=== PATIENT | female | born 1980 | race Caucasian/White ===

== ENCOUNTER 2020-06-30 12:16 | Outpatient (CLI) | payer OTHER, SELFPAY ==
[2020-06-30 12:43] LABS: Hemoglobin 14.2 g/dL (12.0-15.0); Mean Corpuscular HGB Conc 33.8 g/dl (32-36); Mean Corpuscular Volume 91.7 fl (80-100); Mean Platelet Volume 8.6 fl (7.4-10.4); Platelet Count Result 346 k/mm3 (150-375); Red Blood Count 4.58 M/mm3 (4.2-5.4); Red Cell Distribution Width 12.5 % (11.5-14.5); White Blood Count 5.9 K/mm3 (4.5-10.0)
[2020-06-30 14:32] LABS: Free T4 Free Thyroxine 0.92 ng/mL (0.78-2.19); Vitamin D 25 Hydroxy 39.7 ng/mL
== END 2020-06-30 12:17 | disposition home or self-care (01) ==
PROVIDERS: Visit Provider Nurse Practitioner
DX: E55.9 Vitamin D deficiency, unspecified (principal); R53.83 Other fatigue
CPT/HCPCS: 36415; 82306; 82607; 84439; 84443; 85027

== ENCOUNTER 2020-12-11 14:55 | Outpatient (CLI) | payer OTHER, SELFPAY ==
--- NOTE | ~2020-12-11 | XR_ITS ---
EXAMINATION:XR cervical spine 4-5V DATE: 12/11/2020 15:15 INDICATION: Neck pain TECHNIQUE: AP, lateral, lateral swimmers and odontoid views of the cervical spine are provided. COMPARISON: 04/08/2017 FINDINGS: Alignment is normal. The odontoid is intact. No fracture is identified. The vertebral body heights are maintained. There is mild chronic loss of intervertebral disc space height at C5-6 and C6 -7. Unchanged mild bilateral uncovertebral joint osteoarthritis is noted at C5-6. IMPRESSION: 1. Mild cervical spondylosis without acute findings or significant interval change. Reviewed, dictated and finalized at location A. IMPRESSION: 1. Mild cervical spondylosis without acute findings or significant interval ailyn fartune.
== END 2020-12-11 14:56 | disposition home or self-care (01) ==
LOC: ANHIMG 14:58
PROVIDERS: PCP Physician Assistant; Visit Provider Physician Assistant
DX: M47.22 Other spondylosis with radiculopathy, cervical region (principal)
CPT/HCPCS: 72050

== ENCOUNTER 2021-01-11 09:18 | Outpatient (CLI) | payer OTHER, SELFPAY ==
[2021-01-11 09:44] LABS: Hematocrit 41.8 % (37.0-47.0); Hemoglobin 13.8 g/dL (12.0-15.0); Mean Corpuscular Hemoglobin 30.1 pg (26-34); Mean Corpuscular Volume 91.1 fl (80-100); Mean Platelet Volume 8.5 fl (7.4-10.4); Platelet Count Result 298 k/mm3 (150-375); Red Blood Count 4.59 M/mm3 (4.2-5.4); Red Cell Distribution Width 13.3 % (11.5-14.5); White Blood Count 5.1 K/mm3 (4.5-10.0)
[2021-01-11 10:32] LABS: Erythrocyte Sedimentation Rate 6 mm/hr (0-20)
[2021-01-11 10:33] LABS: Alanine Aminotransferase 18 U/L (4-35); Albumin Level 4.3 g/dL (3.5-5.1); Alkaline Phosphatase 54 U/L (38-126); Anion Gap 9 mmol/L (8-16); Aspartate Amino Transferase 28 U/L (14-36); Bilirubin,Total 0.4 mg/dL (0.2-1.3); Blood Urea Nitrogen 9 mg/dL (7-17); Calcium 9.4 mg/dL (8.4-10.2); Carbon Dioxide 27 mmol/L (22-30); Chloride 102 mmol/L (98-107); Cholesterol 173 mg/dL (0-200); Estimated Glomerular Filt Rate > 60; Glucose 85 mg/dL (65-110); HDL Direct 70 mg/dL; Potassium 3.9 mmol/L (3.4-5.0); Sodium 138 mmol/L (137-145); Triglycerides 56 mg/dL (<150)
[2021-01-11 10:44] LABS: LDL Cholesterol Direct 61 mg/dL
[2021-01-11 12:05] LABS: Folic Acid > 20.0 ng/mL (2.76->20)
== END 2021-01-11 09:19 | disposition home or self-care (01) ==
PROVIDERS: PCP Physician Assistant; Visit Provider Physician Assistant
DX: Z00.00 Encounter for general adult medical examination without abnormal findings (principal); M54.2 Cervicalgia
CPT/HCPCS: 36415; 80053; 80061; 82607; 82746; 84443; 85027; 85652

== ENCOUNTER 2021-10-05 10:37 | Outpatient (CLI) | payer OTHER, SELFPAY ==
[2021-10-05 11:37] LABS: Vitamin D 25 Hydroxy 40.9 ng/mL
== END 2021-10-05 10:38 | disposition home or self-care (01) ==
LOC: ANHLAB 10:39
PROVIDERS: PCP Physician Assistant; Visit Provider Nurse Practitioner
DX: E55.9 Vitamin D deficiency, unspecified (principal)
CPT/HCPCS: 36415; 82306

== ENCOUNTER 2021-10-21 15:11 | Outpatient (CLI) | payer OTHER, SELFPAY ==
--- NOTE | ~2021-10-21 | MR_ITS ---
EXAMINATION: MR cervical spine wo con DATE: 10/21/2021 16:04 INDICATION: Cervical radiculopathy. TECHNIQUE: Magnetic resonance imaging (MRI) of the cervical spine was performed without intravenous c ontrast. Sequences included sagittal T2-weighted FSE, sagittal T2-weighted FS FSE, sagittal T1-weight ed FSE, axial MERGE, and axial T2-weighted FSE. COMPARISON: Cervical spine radiographs 12/11/2020 FINDINGS: There is kyphosis of cervical spine. Vertebral body heights are normal. There is mildly dec reased disc height at C5-C6 and moderately decreased disc height at C6-C7. The spinal cord signal int ensity is normal. The following disc levels are specifically discussed: C2-C3: The disc does not extend beyond the endplate margin. There is mild left uncovertebral joint os teoarthritis. There is mild bilateral facet joint osteoarthritis. There is no neural foraminal stenos is. There is no central canal stenosis. C3-C4: The disc is bulging. There is mild bilateral uncovertebral joint osteoarthritis. There is mild bilateral facet joint osteoarthritis. There is no neural foraminal stenosis. There is mild central c anal stenosis. C4-C5: The disc does not extend beyond the endplate margin. There is no uncovertebral joint osteoarth ritis. There is no facet joint osteoarthritis. There is no neural foraminal stenosis. There is no darryl tral canal stenosis. C5-C6: The disc is bulging. There is moderate bilateral uncovertebral joint osteoarthritis. There is no facet joint osteoarthritis. There is mild bilateral neural foraminal stenosis. There is mild centr al canal stenosis. C6-C7: The disc is bulging. There is mild right and severe left uncovertebral joint osteoarthritis. T here is no facet joint osteoarthritis. There is mild bilateral neural foraminal stenosis. There is mi ld central canal stenosis. C7-T1: There is a central protrusion. There is no uncovertebral joint osteoarthritis. There is mild b ilateral facet joint osteoarthritis. There is no neural foraminal stenosis. There is no central canal stenosis. IMPRESSION: 1. Moderate cervical spondylosis. Reviewed, dictated and finalized at location B.
== END 2021-10-21 15:12 | disposition home or self-care (01) ==
LOC: ANHIMG 15:11
PROVIDERS: PCP Physician Assistant; Visit Provider Physician Assistant
DX: M47.22 Other spondylosis with radiculopathy, cervical region (principal)
CPT/HCPCS: 72141

== ENCOUNTER 2022-01-08 14:07 | Outpatient (CLI) | payer OTHER, SELFPAY ==
[2022-01-08 15:04] LABS: Hematocrit 39.5 % (37.0-47.0); Hemoglobin 13.7 g/dL (12.0-15.0); Mean Corpuscular HGB Conc 34.7 g/dl (32-36); Mean Corpuscular Hemoglobin 31.1 pg (26-34); Mean Corpuscular Volume 89.6 fl (80-100); Platelet Count Result 341 k/mm3 (150-375); Red Blood Count 4.41 M/mm3 (4.2-5.4); Red Cell Distribution Width 13.2 % (11.5-14.5); White Blood Count 6.6 K/mm3 (4.5-10.0)
[2022-01-08 15:18] LABS: Alanine Aminotransferase 14 U/L (6-35); Albumin Level 4.5 g/dL (3.5-5.1); Alkaline Phosphatase 64 U/L (38-126); Anion Gap 10 mmol/L (8-16); Aspartate Amino Transferase 26 U/L (14-36); Bilirubin,Total 0.4 mg/dL (0.2-1.3); Blood Urea Nitrogen 11 mg/dL (7-17); Calcium 9.1 mg/dL (8.4-10.2); Carbon Dioxide 25 mmol/L (22-30); Chloride 102 mmol/L (98-107); Cholesterol 166 mg/dL (0-200); Estimated Glomerular Filt Rate > 60; Glucose 82 mg/dL (65-110); HDL Direct 70 mg/dL; Potassium 3.7 mmol/L (3.4-5.0); Sodium 137 mmol/L (137-145); Triglycerides 69 mg/dL (<150)
[2022-01-08 15:29] LABS: LDL Cholesterol Direct 54 mg/dL
[2022-01-08 16:25] LABS: Folic Acid > 20.0 ng/mL (2.76->20)
== END 2022-01-08 14:08 | disposition home or self-care (01) ==
LOC: ANHLAB 14:08
PROVIDERS: PCP Physician Assistant; Visit Provider Obstetrics & Gynecology Gynecology
DX: O03.9 Complete or unspecified spontaneous abortion without complication (principal); Z3A.00 Weeks of gestation of pregnancy not specified
CPT/HCPCS: 36415; 80053; 80061; 82607; 82746; 84443; 84702; 85027

== ENCOUNTER 2022-01-16 14:02 | Outpatient (RCR) | payer OTHER, SELFPAY ==
[2022-01-16 15:11] LABS: Beta HCG Quantitative 2.81 mIU/ML
== END 2022-03-09 23:59 | disposition home or self-care (01) ==
LOC: ANHLAB 14:02
PROVIDERS: PCP Physician Assistant; Visit Provider Obstetrics & Gynecology Gynecology
DX: O26.851 Spotting complicating pregnancy, first trimester (principal); Z3A.00 Weeks of gestation of pregnancy not specified
CPT/HCPCS: 36415; 84702; 85461; 86900; 86901

== ENCOUNTER 2023-02-06 16:37 | Outpatient (CLI) | payer OTHER, SELFPAY ==
[2023-02-06 17:12] LABS: Hematocrit 41.2 % (37.0-47.0); Hemoglobin 13.9 g/dL (12.0-15.0); Mean Corpuscular HGB Conc 33.7 g/dl (32-36); Mean Corpuscular Hemoglobin 31.4 pg (26-34); Mean Platelet Volume 8.5 fl (7.4-10.4); Platelet Count Result 317 k/mm3 (150-375); Red Blood Count 4.43 M/mm3 (4.2-5.4); Red Cell Distribution Width 12.7 % (11.5-14.5); White Blood Count 7.7 K/mm3 (4.5-10.0)
[2023-02-06 17:26] LABS: Potassium 3.3 mmol/L (3.4-5.0)
[2023-02-06 17:29] LABS: Alanine Aminotransferase 22 U/L (6-35); Albumin Level 4.5 g/dL (3.5-5.1); Alkaline Phosphatase 64 U/L (38-126); Anion Gap 5 mmol/L (8-16); Aspartate Amino Transferase 32 U/L (14-36); Bilirubin,Total 0.3 mg/dL (0.2-1.3); Blood Urea Nitrogen 16 mg/dL (7-17); Calcium 8.8 mg/dL (8.4-10.2); Carbon Dioxide 27 mmol/L (22-30); Chloride 99 mmol/L (98-107); Cholesterol 182 mg/dL (0-200); Estimated Glomerular Filt Rate > 60; Glucose 88 mg/dL (65-110); HDL Direct 92 mg/dL; Sodium 131 mmol/L (137-145); Triglycerides 59 mg/dL (<150)
[2023-02-06 17:38] LABS: LDL Cholesterol Direct 75 mg/dL
[2023-02-06 17:40] LABS: Hemoglobin A1C 4.7 % (<5.7)
[2023-02-06 17:57] LABS: Thyroid Stimulating Hormone 0.179 uIU/mL (0.465-4.680)
[2023-02-06 18:00] LABS: Free T4 Free Thyroxine 1.04 ng/mL (0.78-2.19)
== END 2023-02-06 16:38 | disposition home or self-care (01) ==
PROVIDERS: PCP Physician Assistant
DX: Z00.00 Encounter for general adult medical examination without abnormal findings (principal); R53.83 Other fatigue
CPT/HCPCS: 36415; 80053; 80061; 83036; 84439; 84443; 85027

== ENCOUNTER 2023-03-20 15:42 | Outpatient (CLI) | payer OTHER, SELFPAY ==
[2023-03-20 16:10] LABS: Alanine Aminotransferase 23 U/L (6-35); Albumin Level 4.6 g/dL (3.5-5.1); Alkaline Phosphatase 71 U/L (38-126); Anion Gap 2 mmol/L (8-16); Aspartate Amino Transferase 31 U/L (14-36); Bilirubin,Total 0.4 mg/dL (0.2-1.3); Blood Urea Nitrogen 13 mg/dL (7-17); Calcium 9.3 mg/dL (8.4-10.2); Carbon Dioxide 32 mmol/L (22-30); Chloride 100 mmol/L (98-107); Estimated Glomerular Filt Rate > 60; Glucose 91 mg/dL (65-110); Potassium 3.7 mmol/L (3.4-5.0); Sodium 134 mmol/L (137-145)
== END 2023-03-20 15:43 | disposition home or self-care (01) ==
LOC: ANHLAB 15:44
PROVIDERS: PCP Physician Assistant; Visit Provider Physician Assistant
DX: E87.6 Hypokalemia (principal); R79.89 Other specified abnormal findings of blood chemistry
CPT/HCPCS: 36415; 80053; 84443

== ENCOUNTER 2023-09-07 11:01 | Outpatient (CLI) | payer OTHER, SELFPAY ==
--- NOTE | ~2023-09-07 | US_ITS ---
EXAMINATION: US OB <=14 wk fetus w TV DATE: 09/07/2023 12:06 INDICATION: Spotting during first trimester TECHNIQUE: Real-time pelvic ultrasound utilizing both a transvaginal and transabdominal probe was pe rformed. The interpreting radiologist was not present for the study. COMPARISON: None. FINDINGS: The uterus measures 10.7 x 5.2 x 8.2 cm. There is an intrauterine gestational sac. A yolk sac and fe luis carlos pole are identified. The crown rump length measures 2.8 cm, which correlates with an estimated ge stational age of 9 weeks and 4 days. heart motion is identified measuring 168 beats per minute (bpm) by M-mode Doppler. The right ovary measures 2.7 x 1.9 x 2.8 cm. The left ovary measures 3.5 x 2.1 x 3.3 cm. 2.2 similar anechoic cyst in the left ovary. Vascular flow identified in both ovaries on color Doppler. There is no free fluid in the pelvis. IMPRESSION: 1. Single living fetus with heart rate of 168 bpm. 2. Gestational age by ultrasound of 9 weeks 4 day(s) +/- 6 day(s) with ultrasound estimated date of delivery (JOSH) of 04/07/2024. Reviewed, dictated and finalized at location A. IMPRESSION: 1. Single living fetus with heart rate of 168 bpm. 2. Gestational age by ultrasound of 9 weeks 4 day(s) +/- 6 day(s) with ultraso und estimated date of delivery (JOSH) of 04/07/2024.
== END 2023-09-07 11:02 | disposition home or self-care (01) ==
PROVIDERS: PCP Physician Assistant; Visit Provider Obstetrics & Gynecology Gynecology
DX: O26.851 Spotting complicating pregnancy, first trimester (principal); Z3A.00 Weeks of gestation of pregnancy not specified
CPT/HCPCS: 36415; 76801; 76817; 84702

== ENCOUNTER 2023-10-09 15:04 | Outpatient (CLI) | payer OTHER, SELFPAY ==
[2023-10-09 15:33] LABS: Basophils Absolute Auto 0.1 K/mm3 (0.0-0.1); Basophils Percent Auto 0.6 % (0.2-1.2); Eosinophils Absolute Auto 0.2 K/mm3 (0-0.3); Hemoglobin 13.9 g/dL (12.0-15.0); Immature Granulocyte Absolute 0.05 K/mm3 (0.00-0.031); Immature Granulocyte Percent A 0.5 % (0-0.5); Lymphocytes Absolute Auto 2.55 K/mm3 (0.9-3.2); Lymphocytes Percent Auto 26.6 % (18.3-44.2); Mean Corpuscular HGB Conc 33.9 g/dl (32-36); Mean Corpuscular Hemoglobin 30.7 pg (26-34); Mean Corpuscular Volume 90.5 fl (80-100); Mean Platelet Volume 8.8 fl (7.4-10.4); Monocytes Absolute Auto 0.6 K/mm3 (0.1-0.6); Monocytes Percent Auto 6.6 % (2.6-8.5); Neutrophils Absolute Auto 6.1 K/mm3 (1.3-6.7); Neutrophils Percent Auto 63.7 % (45.5-73.1); Platelet Count Result 324 k/mm3 (150-375); Red Blood Count 4.53 M/mm3 (4.2-5.4); Red Cell Distribution Width 13.1 % (11.5-14.5); White Blood Count 9.6 K/mm3 (4.5-10.0)
[2023-10-09 15:43] LABS: Hemoglobin A1C 4.7 % (<5.7)
[2023-10-09 16:13] LABS: Free T4 Free Thyroxine 0.82 ng/mL (0.78-2.19)
[2023-10-09 16:26] LABS: HIV 1/2 Ab P24 Ag Result Negative (Negative)
[2023-10-09 16:31] LABS: Hepatitis B Surface Antigen Negative (Negative); Rubella IgG Antibody 27.1 IU/ML
[2023-10-09 16:46] LABS: Hepatitis C Virus Antibody Negative (Negative)
[2023-10-12 16:04] LABS: Rapid Plasma Reagin Non-Reactive (NonReactive)
== END 2023-10-09 15:05 | disposition home or self-care (01) ==
LOC: ANHLAB 15:06
PROVIDERS: PCP Physician Assistant; Visit Provider Advanced Practice Midwife
DX: Z36.9 Encounter for antenatal screening, unspecified (principal)
CPT/HCPCS: 36415; 82306; 82728; 83036; 84439; 84443; 85025; 86592; 86703; 86762; 86803; 86850; 86900; 86901; 87340; G0432

== ENCOUNTER 2023-10-28 12:20 | Outpatient (CLI) | payer OTHER, SELFPAY ==
--- NOTE | ~2023-10-28 | US_ITS ---
EXAMINATION: US OB follow up DATE: 10/28/2023 13:11 INDICATION: Intrauterine demise. TECHNIQUE: Real-time ultrasound of the pelvis was performed. COMPARISON: Ultrasound 09/07/2023 FINDINGS: There is a single living fetus in transverse with head to the mother's left presentation. The placen ta is posterior. There is no heart motion. The amniotic fluid volume is subjectively normal. The following biometric data were obtained: Biparietal diameter (BPD): 2.7 cm; head circumference (HC): 10.4 cm; abdominal circumference (AC): 8. 9 cm; femur length (FL): 1.6 cm. These measurements are concordant. Estimated weight is 110 g +/- 16 g, which correlates with the <3rd percentile when 04/07/24 is used as estimated date of delivery. As single measurements, these parameters are each equal to the following estimated gestational ages: BPD: 14 weeks 5 days. HC: 14 weeks 6 days. AC: 15 weeks 1 days. FL: 14 weeks 5 days. estimated gestational age based solely on measurements from this exam is 14 weeks 6 days +/- 1 weeks 0 days. IMPRESSION: 1. demise. Reviewed, dictated and finalized at location A. IMPRESSION: 1. demise.
== END 2023-10-28 12:21 | disposition home or self-care (01) ==
LOC: ANHIMG 12:20
PROVIDERS: PCP Physician Assistant; Visit Provider Obstetrics & Gynecology Gynecology
DX: O36.4XX0 Maternal care for intrauterine death, not applicable or unspecified (principal); Z3A.14 14 weeks gestation of pregnancy
CPT/HCPCS: 76816

== ENCOUNTER 2023-10-30 06:50 | Inpatient (IN) | payer OTHER, SELFPAY ==
[2023-10-30] VITALS (17 sets, daily range): BP systolic 99–126; BP diastolic 67–91; PULSE 77–93; RESP 15–16; TEMP 36.2–36.6; O2SAT 97; BMI 29.3
--- NOTE | 2023-10-30 07:13 | WPDOBADMIT ---
Obstetrics - Admit Note Admission Note: record reviewed. No pertinent additions to the history and/or any subsequent changes in the physical findings that are not consistent with the expected course of the were found. Additions to the history and/or subsequent changes in the physical findings follow. Pt admitted for IOL with known Missed AB/IUFD at 16 weeks. size 14 weeks by US.
--- NOTE | 2023-10-30 07:34 | PC.NURSE ---
Corbin Wang CNM at discussing POC with pt. Pt. is tearful, emotional support offered. Pt. is receptive to support, asking questions appropriately.
--- NOTE | 2023-10-30 08:21 | PM.OBPNLAB ---
Pain Control Date/time seen: 10/30/23 0329 Assessment and Plan Comments: CNM to bedside. Discussed plan of care and expectations. Pt's aunt present for support. Denies pain, bleeding, cramping at this time.
[2023-10-30 08:34] LABS: Basophils Absolute Auto 0.1 K/mm3 (0.0-0.1); Basophils Percent Auto 0.7 % (0.2-1.2); Eosinophils Absolute Auto 0.2 K/mm3 (0-0.3); Eosinophils Percent Auto 2.3 % (0-4.4); Immature Granulocyte Absolute 0.03 K/mm3 (0.00-0.031); Immature Granulocyte Percent A 0.4 % (0-0.5); Lymphocytes Absolute Auto 1.83 K/mm3 (0.9-3.2); Lymphocytes Percent Auto 26.6 % (18.3-44.2); Mean Corpuscular HGB Conc 34.1 g/dl (32-36); Mean Corpuscular Hemoglobin 31.3 pg (26-34); Mean Corpuscular Volume 91.5 fl (80-100); Mean Platelet Volume 8.8 fl (7.4-10.4); Monocytes Absolute Auto 0.5 K/mm3 (0.1-0.6); Monocytes Percent Auto 7.7 % (2.6-8.5); Neutrophils Absolute Auto 4.3 K/mm3 (1.3-6.7); Neutrophils Percent Auto 62.3 % (45.5-73.1); Platelet Count Result 347 k/mm3 (150-375); Red Blood Count 4.48 M/mm3 (4.2-5.4); Red Cell Distribution Width 13.2 % (11.5-14.5); White Blood Count 6.9 K/mm3 (4.5-10.0)
[2023-10-30 08:54] LABS: Hemoglobin A1C 4.8 % (<5.7)
[2023-10-30 09:04] LABS: Free T4 Free Thyroxine 1.07 ng/mL (0.78-2.19)
--- NOTE | 2023-10-30 09:05 | LDADM ---
This patient, Larisa Meza, was admitted to Labor/Delivery/Recovery 110 on 10/30/23 at 06:50. Plans for labor, pain management and were discussed with patient. Patient/family oriented to hospital policies and general routines including ID bracelet, bed and alarms, visiting hours, pain management, procedures, bathroom and other care routines, personal items, smoking policy, room service/diet and guest tray routines, security routines, and visiting hours. Patient/Family are encouraged to report perceived risks to care and to ask questions if they do not understand what they are told or what they should do. See OBIX for further documentation.
[2023-10-30 09:16] LABS: Rubella IgG Antibody 29.6 IU/ML
[2023-10-30] MEDS: miSOPROStol 200 MCG TABLET 400 MCG PO ×4 (09:34→21:25)
[2023-10-30 11:03] LABS: Amphetamine Screen Urine Negative (Negative); Barbiturate Screen Urine Negative (Negative); Benzodiazepines Screen Urine Negative (Negative); Cannabinoid Screen Urine Negative (Negative); Cocaine Screen Urine Negative (Negative); Methadone Screen Urine Negative (Negative); Opiate Screen Urine Negative (Negative); Phencyclidine Screen Urine Negative (Negative)
[2023-10-30 11:20] LABS: Rapid Plasma Reagin Non-Reactive (NonReactive)
--- NOTE | 2023-10-30 12:30 | PC.NURSE ---
Phone call received from Corbin Wang CNM, update given that pt. is due for next dose of cytotec at 1330, no pain at this time. No new orders received at this time.
[2023-10-30] MEDS: HYDROCORTISONE 1% 30 GM OINTMENT 1 APPLIC TOPICAL (13:28)
--- NOTE | 2023-10-30 14:28 | PC.NURSE ---
Pt's s.o. at bedside at this time. POC reviewed with him and the pt. at this time. Emotional support and reassurance offered at this time.
--- NOTE | 2023-10-30 14:46 | PC.NURSE ---
Caro Franco RN with share at speking with pt.
--- NOTE | 2023-10-30 15:06 | PC.NURSE ---
Phone call from Corbin Wang CNM, update given re: 2nd dose of cytotec, no new orders received.
--- NOTE | 2023-10-30 17:08 | PC.NURSE ---
Corbin Wang CNM at to see pt.
--- NOTE | 2023-10-30 17:23 | PM.OBPNLAB ---
Pain Control Date/time seen: 10/30/23 17:15 Pain control: tolerating well Pelvic Exam Dilation (cm): 0 Effacement (%): 25 station: -3 Amniotic membrane status: Intact Assessment and Plan Assessment: induction ongoing Comments: Doing well. Feeling occasional mild cramping. No bleeding or leaking. Discussed plan of care. Aunt remains at bedside for support. Partner also has been present all afternoon. Update given to Dr. Caio Pickard, back up OBGYN.
[2023-10-30] MEDS: FAMOTIDINE 20 MG/2 ML VIAL IV PUSH (17:45)
[2023-10-30] MEDS: ONDANSETRON INJ 4 MG/2 ML VIAL IV PUSH (19:46)
[2023-10-30] MEDS: MAG HYDROX/AL HYDROX/SIMETH 30 ML UDC PO (21:24)
[2023-10-30] MEDS: CALCIUM CARBONATE (TUMS) 500 MG (200 MG ELEMENTAL) PO (21:25)
[2023-10-30] MEDS: HYDROcodone/acetaminophen (*CRX) 5-325 MG TABLET 1 TAB PO (21:31)
[2023-10-31] VITALS (30 sets, daily range): BP systolic 95–117; BP diastolic 62–83; PULSE 73–88; RESP 15; TEMP 36.6–37.3; O2SAT 93–100
[2023-10-31] MEDS: miSOPROStol 200 MCG TABLET 400 MCG PO (01:36)
[2023-10-31] MEDS: miSOPROStol 200 MCG TABLET 400 MCG VAGINAL ×2 (05:38→09:57)
[2023-10-31] MEDS: ONDANSETRON INJ 4 MG/2 ML VIAL IV PUSH (13:13)
[2023-10-31] MEDS: fentaNYL CITRATE INJ (*CRX) 100 MCG/2 ML VIAL IV PUSH ×2 (13:13→16:00)
--- NOTE | 2023-10-31 13:13 | PM.OBPNLAB ---
Pain Control Date/time seen: 10/31/23 13:13 Pelvic Exam Dilation (cm): 1 Effacement (%): 25 station: -3 Amniotic membrane status: Leaking Comments: arom bloody
[2023-10-31] MEDS: LACTATED RINGERS 1,000 ML 125 ML IV CONT ×2 (13:52→20:29)
[2023-10-31] MEDS: OXYTOCIN 30 UNITS/NS 500 ML 30 UNITS/500 ML BAG 6 UNITS IV CONT (13:52)
--- NOTE | 2023-10-31 17:14 | PM.OBPNLAB ---
Pain Control Date/time seen: 10/31/23 Assessment and Plan Comments: [id number] Spoke with RN and Dr. Caio Pickard several times this am. performed AROM. Pt having more frequent ctx but pain not increased in intensity.
--- NOTE | 2023-10-31 17:16 | P.PCNOB_ITS ---
OB - Vaginal Delivery Note Procedure Delivery date: 10/31/23 Events: Other (IUFD diagnosed in office on 10/26/23) Induction method: Per Misoprostol Protocol and Per Pitocin Protocol Delivery augmentation: Rupture of Membranes Delivery monitor: None Route of delivery: Episiotomy description: None Laceration Description: None Specimen: Yes (fetus and placenta) Anesthesia type: IV analgesia Disposition: Other (pathology) Complications: No immediate complications Narrative: Larisa presented for IOL for known IUFD. She received several doses of buccal Cytotec followed by vaginal Cytotec. Membranes ruptured by Dr. Caio Pickard. Shortly after feeling regular cramping, the fetus delivered intact in the bed. RN clamped and cut umbilical cord. CNM to bedside. Placenta was undelivered. The fetus was inspected by CNM and found to be grossly normal and appropriate for 14-15 weeks gestation. Placenta remained undelivered. Plan for D&C for retained placenta. See procedure note. [facility] Baby Date of : 10/31/23 Time of : 16:02 Weeks of gestation at delivery: 16 (measuring 14 weeks by US ) gender: Female (per chromosomal testing during care) Weight (pounds): 0 Weight (ounces): 1 (1.9 ounces) presentation: unknown Cord Vessel Description: Clamped/Cut score one minute: 0 score five minutes: 0 score ten minutes: 0
--- NOTE | 2023-10-31 18:20 | PM.OBPNLAB ---
Pain Control Date/time seen: 10/31/23 18:20 Assessment and Plan Comments: Placenta remains undelivered. Bleeding small. Mild occasional cramping. Discussed plan of care and offer of D&C by Dr. Caio Pickard. Discussed procedure with pt and family. Pt desires to proceed with D&C. Dr. Caio Pickard notified.
--- NOTE | 2023-10-31 18:22 | PM.IMHP ---
H&P: HPI History of Present Illness Date/Time: 10/31/23 18:10 Chief Complaint: Retained placenta Narrative: 42 y.o. 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) Review of Systems Review of Systems: All systems reviewed & are unremarkable except as noted in HPI and below PMFSH Past Medical History Medical History Anxiety GERD (gastroesophageal reflux disease) Family History Family History (Updated 10/30/23 @ 09:07 by Eusebia Sanchez RN) Father Family history of arthritis Grandparent Family history of Alzheimer's disease Other Cerebrovascular accident Diabetes mellitus Family history of glaucoma Social History Social History Smoking status: Current some day smoker Smoking end date: 11/28/13 Alcohol intake: current Substance use: never Do You Feel Safe in your Home?: Yes Lack of Transportation: No Lack of Food: Never True Current Housing: I Have Housing Concerned About Future Housing: No Difficulty Paying Gas/Electric Bills: No Difficulty Paying for Meds: No Currently Unemployed: No Education: Associate Degree Difficulty w/ Childcare or Family Care: No Spiritual care concerns: No Meds Home Medications and Allergies Home Medications Medication Instructions Recorded Confirmed Type potassium chloride 10 mEq 10 meq PO .qod #30 caps 02/09/23 04/17/23 Rx capsule,extended release cyclobenzaprine 10 mg tablet 10 mg PO QHS PRN muscle spasm #90 04/15/23 04/15/23 Rx tabs venlafaxine 150 mg 150 mg PO DAILY #90 caps 04/15/23 04/15/23 Rx capsule,extended release 24 hr vortioxetine 20 mg tablet 20 mg PO DAILY #90 tabs 04/15/23 04/15/23 Rx (Trintellix) Allergies Allergy/AdvReac Type Severity Reaction Status Date / Time No Known Allergies Allergy Unverified 04/15/23 10:37 Vital Signs Vital Signs - 24 hr 10/30/23 21:28 10/31/23 01:34 10/31/23 01:35 Temperature 97.5 F L 98.4 F Pulse Rate 77 80 Blood Pressure 101/69 112/66 Pulse Oximetry 97 93 10/31/23 05:32 10/31/23 08:02 10/31/23 08:00 Temperature 99.1 F 98.2 F Pulse Rate 84 80 Blood Pressure 102/74 116/75 Pulse Oximetry 95 10/31/23 09:57 10/31/23 09:58 10/31/23 13:13 Temperature 98 F Pulse Rate 86 Blood Pressure 112/68 112/72 Pulse Oximetry 10/31/23 13:15 10/31/23 13:30 10/31/23 17:31 Temperature 99.2 F Pulse Rate 82 82 78 Blood Pressure 109/62 115/73 107/70 Pulse Oximetry Exam Const: General: comfortable and no acute distress HENMT: Mouth: Yes moist mucous membranes Eyes: General: appearance normal, both eyes and all related structures Neck: Neck: supple Resp: Effort & Inspection: normal respiratory effort Other: Normal rate Cardio: Rate: regular rate GI: GI Palp: Yes Soft to palpation : General: Yes bladder normal to palpation Other: small amount vaginal bleeding. Dark red. Pt ambulated to bathroom and urinated without difficulty. Skin: General skin exam: normal color and no rashes or lesions noted Neuro: General: gait normal Speech: normal speech Motor exam (neuro): Motor abnormalites present Sensory Exam: normal sensation Extrem: General: normal to inspection Psych: Mental Status: mental status grossly normal Affect: Sad affect present (appropriate for situation) Assessment and Plan Assessment and plan (1) IUFD at less than 20 weeks of gestation: Code(s): O02.1 - Missed Status: Acute (2) Retained placenta or amniotic membrane after delivery without hemorrhage: Code(s): O73.1 - Retained portions of placenta and membranes, without hemorrhage Status: Acute (3) AMA (advanced maternal age) multigravida 35+: Code(s): O09.529 - Supervision of basilio
--- NOTE | 2023-10-31 19:01 | PM.OBPNVD ---
OB - PN: Subj Subjective Date/time seen: 10/31/23 19:01 Interval history: hsant passed placenta. bleeding increasing> offrede d and c/e. risks and benefits given OB - PN: Obj Data Labs 10/30/23 08:18 OB - PN A/P Time Spent With Patient Time: Total time spent is greater than 50% in coordination of care (as documented) at patient's floor/unit and/or counseling patient:
--- NOTE | 2023-10-31 19:11 | WPDHPUPDATE1 ---
History and Physical Update Update Date/Time: 10/31/23 19:11 History and Physical has been reviewed, including an updated exam of the patient. There are NO changes in the patient's condition. Risks, benefits, and alternatives have been discussed and questions answered. Patient agrees to proceed with procedure.
[2023-10-31] MEDS: ceFAZolin 2 GM/D5W 50 ML 2 GM/50 ML BAG IVPB (19:45)
--- NOTE | 2023-10-31 20:02 | P.PNAN_ITS ---
Anes - Eval Pre Procedure Procedure: Operation Date: 10/31/23 20:00 Proposed Procedures p D&C Suction and Jackie Pickard MD Date/Time: 10/31/23 20:02 Pre Op Diagnosis: IUFD Patient Data Age: 42 Gender: F Height: 1.7 m Weight: 85 kg Last Vital Signs Temp 37.3 C 10/31/23 13:15 Pulse 75 10/31/23 19:30 Resp 16 10/30/23 12:28 BP 110/77 10/31/23 19:30 Pulse Ox 95 10/31/23 05:32 O2 Del Method Room Air 10/30/23 08:59 Allergies Allergy/AdvReac Type Severity Reaction Status Date / Time No Known Allergies Allergy Unverified 04/15/23 10:37 Home Medications Medication Instructions Recorded Confirmed Type potassium chloride 10 mEq 10 meq PO .qod #30 caps 02/09/23 04/17/23 Rx capsule,extended release cyclobenzaprine 10 mg tablet 10 mg PO QHS PRN muscle spasm #90 04/15/23 04/15/23 Rx tabs venlafaxine 150 mg 150 mg PO DAILY #90 caps 04/15/23 04/15/23 Rx capsule,extended release 24 hr vortioxetine 20 mg tablet 20 mg PO DAILY #90 tabs 04/15/23 04/15/23 Rx (Trintellix) Patient hx anesthesia problems: none Family hx anesthesia problems: none Results Review: All pre-operative results and documents have been reviewed as part of the pre- operative evaluation. [facility] Past Medical History Medical History Anxiety GERD (gastroesophageal reflux disease) Family History Family History Father Family history of arthritis Grandparent Family history of Alzheimer's disease Other Cerebrovascular accident Diabetes mellitus Family history of glaucoma Social History Social History Smoking status: Current some day smoker Smoking end date: 11/28/13 Alcohol intake: current Substance use: never Do You Feel Safe in your Home?: Yes Lack of Transportation: No Lack of Food: Never True Current Housing: I Have Housing Concerned About Future Housing: No Difficulty Paying Gas/Electric Bills: No Difficulty Paying for Meds: No Currently Unemployed: No Education: Associate Degree Difficulty w/ Childcare or Family Care: No Spiritual care concerns: No Exam Day of Procedure 10/31/23 20:02 Patient weight: overweight Heart: regular rate and rhythm Lungs: normal air movement Airway: Mallampati scale Neurological: alert and oriented
--- NOTE | 2023-10-31 20:08 | WPDANESEPPF ---
Anes - Initial Pre Proc Eval Procedure: Operation Date: 10/31/23 20:00 Proposed Procedures p D&C Suction and Sharp - Refugio Pickard MD Date/Time: 10/31/23 20:08 Surgeon: Nathaly Ribeiro MD Pre Op Diagnosis: IUFD Patient Data Age: 42 Gender: F Height: 1.7 m Weight: 85 kg Last Vital Signs Temp 37.3 C 10/31/23 13:15 Pulse 75 10/31/23 19:30 Resp 16 10/30/23 12:28 BP 110/77 10/31/23 19:30 Pulse Ox 95 10/31/23 05:32 O2 Del Method Room Air 10/30/23 08:59 Allergies Allergy/AdvReac Type Severity Reaction Status Date / Time No Known Allergies Allergy Unverified 04/15/23 10:37 Home Medications Medication Instructions Recorded Confirmed Type potassium chloride 10 mEq 10 meq PO .qod #30 caps 02/09/23 04/17/23 Rx capsule,extended release cyclobenzaprine 10 mg tablet 10 mg PO QHS PRN muscle spasm #90 04/15/23 04/15/23 Rx tabs venlafaxine 150 mg 150 mg PO DAILY #90 caps 04/15/23 04/15/23 Rx capsule,extended release 24 hr vortioxetine 20 mg tablet 20 mg PO DAILY #90 tabs 04/15/23 04/15/23 Rx (Trintellix) Patient hx anesthesia problems: none Family hx anesthesia problems: none Results Review: All pre-operative results and documents have been reviewed as part of the pre-operative evaluation. COUNTS INCLUDE 234 BEDS AT THE [facility] Past Medical History Medical History Anxiety GERD (gastroesophageal reflux disease) Family History Family History Father Family history of arthritis Grandparent Family history of Alzheimer's disease Other Cerebrovascular accident Diabetes mellitus Family history of glaucoma Social History Social History Smoking status: Current some day smoker Smoking end date: 11/28/13 Alcohol intake: current Substance use: never Do You Feel Safe in your Home?: Yes Lack of Transportation: No Lack of Food: Never True Current Housing: I Have Housing Concerned About Future Housing: No Difficulty Paying Gas/Electric Bills: No Difficulty Paying for Meds: No Currently Unemployed: No Education: Associate Degree Difficulty w/ Childcare or Family Care: No Spiritual care concerns: No Anes - Eval Final PreProcedure Day of Procedure 10/31/23 20:08 Patient weight: overweight Heart: regular rate and rhythm Lungs: clear to auscultation Airway: Mallampati scale class II Neurological: alert and oriented Last oral intake: 2 hours ASA classification: II Emergent: no Anesthetic plan: proceed Anesthesia type and monitoring: general ETT and standard monitoring Results Review: All pre-operative results and documents have been reviewed as part of the pre-operative evaluation. Informed Consent: The patient's anesthetic plan and its attendant risks and benefits were discussed with the patient/family/POA. Questions were solicited and answers provided to the satisfaction of the patient/family/POA.
--- NOTE | 2023-10-31 20:31 | W.PM.PROC2 ---
Procedure Note - Detailed Date of Procedure 10/31/23 Pre-op Diagnosis IUFD / retained placenta Post-op Diagnosis Same Procedure Performed suction dilatation curettage Surgeon Refugio Pickard MD Anesthesia General Indications seen irregular old Cohen's 2nd trimester intrauterine demise with retained placenta post delivery Findings tissue consistent with retained placenta Description of Procedure patient was prepped draped in normal sterile fashion placed in dorsal lithotomy position. Under excellent general trach anesthesia aspect post post pressure bandage. Anterior lip of cervix grasped with single-tooth tenaculum. The placenta could be seen at the os and was removed with in several pieces with ring forceps the 12. Suction curette was then placed and is few small chunks of tissue removed when no further tissue the instruments withdrawn. Blood loss estimated 50cc. All sponge, needle, instrument counts were correct. no immediate Immediate complications Estimated Blood Loss 50 Drains No Packing No Pathology Yes Complications No immediate complications Condition Stable Disposition PACU
--- NOTE | 2023-10-31 20:34 | P.DS_ITS ---
DS: Admitting Diagnosis Discharge Date 10/31/2023 Admitting Diagnosis 2nd trimester demise DS: Discharge Diagnosis Discharge Diagnosis (1) IUFD at less than 20 weeks of gestation: Code(s): O02.1 - Missed Status: Acute (2) Retained placenta or amniotic membrane after delivery without hemorrhage: Code(s): O73.1 - Retained portions of placenta and membranes, without hemorrhage Status: Acute DS: Summary Hospital Course Reason for hospitalization: patient was admitted for induction of labor secondary to demise she delivered the fetus on 10/30. She had retained placenta and underwent unremarkable suction dilatation curettage Hospital Course: she was watched post for a couple hours and was saul bleeding. She was discharged home patient was up eating regular ambulating generally without complaints Time Spent with Patient Time attestation: Total time spent providing and/or coordinating discharge services: Exam Const: General: cooperative, healthy appearing and comfortable Nutritional Appearance: average body habitus Orientation/consciousness: oriented to person, oriented to place and oriented to time HENMT: Head: normal to inspection Resp: Effort & Inspection: normal respiratory effort Cardio: Rate: regular rate Rhythm: regular rhythm Heart sounds: S1 normal heart sound present and S2 normal heart sound present GI: Inspection: normal to inspection DS: Data Data Completed and Pending Pending studies at discharge: Pending at discharge 10/31/23 20:21 Surgical [PTH] Routine Discharge Plan Discharge Attending physician on discharge: Nathaly Ribeiro Discharging Clinician: Refugio Bond Patient Disposition: Home, Self-Care Activity: no straining and pelvic rest Diet: heart healthy Wound Care Instructions: follow printed instructions Patient Instructions: Antibiotic Form Stand Alone Forms: General Discharge Information Follow-up/Referrals: Refugio Bond MD [Physician] - Nathaly Ribeiro MD [Physician] - Mary Wang CNM [Certified Nurse Casualty Claims Supervisor] - Discharge Medications: New hydrocodone-acetaminophen 5-325 mg tablet 1 tablet PO Q4H PRN (Reason: pain) Qty: 14 0RF No Action cyclobenzaprine 10 mg tablet 10 mg PO QHS PRN (Reason: muscle spasm) Qty: 90 0RF Trintellix 20 mg tablet 20 mg PO DAILY Qty: 90 1RF venlafaxine 150 mg capsule,extended release 24hr 150 mg PO DAILY Qty: 90 3RF potassium chloride 10 mEq capsule, extended release 10 meq PO .qod Qty: 30 0RF Date of admission: 10/30/23 06:50 Primary Care Provider: Benjamin Duke Admitting Provider: Nathaly Ribeiro Attending physician on admission: Nathaly Ribeiro Condition: Stable
[2023-10-31] MEDS: LACTATED RINGERS 1,000 ML 30 ML IV CONT (20:35)
[2023-10-31] MEDS: HYDROcodone/acetaminophen (*CRX) 5-325 MG TABLET 1 TAB PO (22:31)
[2023-11-02 14:18] LABS: CMV IgG Antibody >10.00 U/mL; CMV IgM Antibody <30.00 AU/mL
[2023-11-03 14:39] LABS: Toxoplasma IgG Antibody <7.20 IU/mL; Toxoplasma IgM Antibody <8.00 AU/mL
[2023-11-03 20:40] LABS: Lupus dRVVT Screen 33 sec (< OR = 45); PTT-LA Screen 32 sec (< OR = 40)
[2023-11-04 03:24] LABS: Anti Cardio Antibody IgM 2.1 MPL-U/mL; Anti Cardiolipin Antibody IgA <2.0 APL-U/mL; Anti Cardiolipin Antibody IgG <2.0 GPL-U/mL
[2023-11-08 05:13] LABS: PS/PT AB IgG <9 U (< OR = 30); PS/PT AB IgM 14 U (< OR = 30)
[2023-11-09 20:18] LABS: Anti Cardio Antibody IgM <2.0 MPL-U/mL; Anti Cardiolipin Antibody IgA <2.0 APL-U/mL; Anti Cardiolipin Antibody IgG <2.0 GPL-U/mL
== END 2023-10-31 22:37 | disposition home or self-care (01) | DRG 770 ==
PROVIDERS: Admitting Provider Obstetrics & Gynecology Gynecology; PCP Physician Assistant; Referring Provider Advanced Practice Midwife; Visit Provider Obstetrics & Gynecology
PROC: 10D17ZZ Extraction of Products of Conception, Retained, Via Natural or Artificial Opening (ICD-10-PCS; principal; 2023-10-31 20:00)
DX: O02.1 Missed abortion (principal); O73.1 Retained portions of placenta and membranes, without hemorrhage; Z3A.16 16 weeks gestation of pregnancy; Z14.1 Cystic fibrosis carrier; O99.344 Other mental disorders complicating childbirth; F32.A Depression, unspecified
CPT/HCPCS: 36415; 80307; 83036; 84439; 84443; 85025; 85613; 85730; 86146; 86147; 86592; 86644; 86645; 86695; 86696; 86747; 86762; 86777; 86850; 86900; 86901; 88305; A9270; J0330; J0690; J2250; J2405; J2590; J2704; J3010; J7120

== ENCOUNTER 2024-10-18 09:18 | Outpatient (CLI) | payer OTHER, SELFPAY ==
--- NOTE | ~2024-10-18 | XR_ITS ---
EXAMINATION: XR UGIAC w barium swallow DATE: 10/18/2024 10:03 INDICATION: Gastroesophageal reflux. TECHNIQUE: The patient drank thick barium, gas-producing crystals, and thin barium. Fluoroscopy of th e hypopharynx and esophagus was performed. Fluoroscopy exposure time was 1.6 minutes. The total numbe r of images was 84. The dose-area product was 16.2 Gy-cm^2. COMPARISON: None. FINDINGS: No penetration or aspiration with thin liquids. There is no mass or stricture of the esophagus. Esophageal motility is normal. There is no hiatal hernia. There was no gastroesophageal reflux with provocative maneuvers. IMPRESSION: Unremarkable upper GI and barium swallow, as detailed above. Reviewed, dictated and finalized at location A.
[2024-10-18 10:12] LABS: Basophils Absolute Auto 0.1 K/mm3 (0.0-0.1); Basophils Percent Auto 1.1 % (0.2-1.2); Eosinophils Absolute Auto 0.1 K/mm3 (0-0.3); Eosinophils Percent Auto 1.7 % (0-4.4); Hematocrit 44.4 % (37.0-47.0); Hemoglobin 14.2 g/dL (12.0-15.0); Immature Granulocyte Absolute 0.02 K/mm3 (0.00-0.031); Immature Granulocyte Percent A 0.2 % (0-0.5); Lymphocytes Absolute Auto 2.34 K/mm3 (0.9-3.2); Lymphocytes Percent Auto 28.9 % (18.3-44.2); Mean Corpuscular Volume 93.9 fl (80-100); Mean Platelet Volume 8.8 fl (7.4-10.4); Monocytes Absolute Auto 0.8 K/mm3 (0.1-0.6); Monocytes Percent Auto 9.2 % (2.6-8.5); Neutrophils Absolute Auto 4.8 K/mm3 (1.3-6.7); Neutrophils Percent Auto 58.9 % (45.5-73.1); Platelet Count Result 354 k/mm3 (150-375); Red Blood Count 4.73 M/mm3 (4.2-5.4); Red Cell Distribution Width 12.8 % (11.5-14.5); White Blood Count 8.1 K/mm3 (4.5-10.0)
[2024-10-18 10:24] LABS: Alanine Aminotransferase 18 U/L (6-35); Albumin Level 4.5 g/dL (3.5-5.1); Alkaline Phosphatase 63 U/L (38-126); Anion Gap 7 mmol/L (4-12); Aspartate Amino Transferase 24 U/L (14-36); Bilirubin,Total 0.5 mg/dL (0.2-1.3); Blood Urea Nitrogen 13 mg/dL (7-17); Calcium 9.1 mg/dL (8.4-10.2); Carbon Dioxide 30 mmol/L (22-30); Chloride 101 mmol/L (98-107); Estimated Glomerular Filt Rate > 60; Glucose 94 mg/dL (65-110); Potassium 3.8 mmol/L (3.4-5.0); Sodium 138 mmol/L (137-145)
== END 2024-10-18 09:19 | disposition home or self-care (01) ==
LOC: ANHIMG 09:19
PROVIDERS: PCP Internal Medicine; Visit Provider Internal Medicine
DX: K21.9 Gastro-esophageal reflux disease without esophagitis (principal); R23.2 Flushing
CPT/HCPCS: 36415; 74246; 80053; 85025